=== PATIENT | female | born 1950 | race African-American/Black ===

== ENCOUNTER 2021-11-02 06:24 | Emergency (ER) | payer OTHER ==
[~2021-11-02] VITALS: Ht 162.6 cm; Wt 50.0 kg
[2021-11-02 06:59] LABS: PROTHROMBIN TIME 10.9 sec (9.6-11.0)
[2021-11-02 07:01] LABS: CHLORIDE 104 mEq/L (98-107)
[2021-11-02 07:10] LABS: BASOPHILS % 0.2 % (0.0-2.0); EOSINOPHILS % 0.9 % (0.0-5.0); HEMATOCRIT. 39.7 % (36.0-48.0); HEMOGLOBIN. 13.2 g/dL (12.0-16.0); MEAN CORPUSCULAR HEMOGLOBIN 28.6 pg (28.0-32.0); MEAN CORPUSCULAR VOLUME 85.9 fL (81.0-99.0); MEAN PLATELET VOLUME 8.1 fl (7.4-10.4); MONOCYTES % 3.8 % (2.0-8.0); NEUTROPHILS % 81.1 % (40.0-76.0); PLATELET 230 x1000/uL (130-400); RED BLOOD CELL COUNT 4.63 mill/uL (4.2-5.4); RED CELL DISTRIBUTION WIDTH 13.8 % (11.6-14.6)
[2021-11-02] MEDS ORDERED: KETOROLAC 30MG/ML VIAL IV ONE (09:00)
[2021-11-02 09:20] VITALS: BP 172/80
[2021-11-02] MEDS ORDERED: ONDA4TAB5 PO (10:57)
[2021-11-02] MEDS ORDERED: TOPUD PO (10:57)
== END 2021-11-02 11:42 | disposition home or self-care (01) ==
LOC: ER 06:24
DX: K52.9 Noninfective gastroenteritis and colitis, unspecified (principal); K57.90 Diverticulosis of intestine, part unspecified, without perforation or abscess without bleeding; I25.10 Atherosclerotic heart disease of native coronary artery without angina pectoris; I31.3 Pericardial effusion (noninflammatory); E11.9 Type 2 diabetes mellitus without complications; I51.7 Cardiomegaly
CPT/HCPCS: 36415; 74176; 80053; 83690; 85025; 85610; 96374; 99284; J1885